=== PATIENT | male | born 1955 | race Caucasian/White ===

== ENCOUNTER 2016-09-15 09:33 | Inpatient (IN) | payer MEDICARE, OTHER ==
[2016-09-15] MEDS ORDERED: IOPAMIDOL 300 (61%) 100 ML VIAL IV ONE (09:34)
[2016-09-15 10:19] LABS: BASO # 0.1 K/mm3 (0.0-0.2); BASO % 1.1 % (0.2-1.0); EOS # 0.3 (0.0-0.5); EOS % 3.7 % (0.9-2.9); HEMATOCRIT 44.3 % (32.0-52.0); HEMOGLOBIN 14.4 gm/l (14.0-18.0); IMM NEUT% 0.3 % (0-1); LYMPH # 1.7 (1.0-4.8); LYMPH % 22.4 % (15-45); MEAN CELL VOLUME 87.4 fl (80.0-94.0); MEAN CORPUSCULAR HEMOGLOBIN 28.4 pg (27.0-31.0); MEAN CORPUSCULAR HGB CONC 32.5 g/dl (33.0-37.0); MEAN PLATELET VOLUME 11.6 fl (7.4-10.4); MONO # 0.5 (0.0-0.8); MONO % 6.5 % (4-12); PLATELET COUNT 227 K/mm3 (130-400)
[2016-09-15] MEDS ORDERED: ALBUTEROL/IPRATROPIUM 2.5/0.5 MG 3 ML/EACH DOSE ONE (10:26)
[2016-09-15 10:46] LABS: CALCIUM 8.6 mg/dL (8.6-10.3); MAGNESIUM 1.5 mg/dL (1.9-2.7)
[2016-09-15] MEDS ORDERED: LACTATED RINGERS 1,000 ML ONE (10:48)
[2016-09-15] MEDS ORDERED: DEXAMETHASONE SOD PHOS 10 MG/1 ML VIAL ONE (10:48)
[2016-09-15 11:15] LABS: PROTHROMBIN TIME 144.1 SECONDS (9.3-11.4)
[2016-09-15 11:16] LABS: INR > 10.00
[2016-09-15] MEDS ORDERED: PHYTONADIONE 10 MG/1 ML AMP ONE (11:34)
[2016-09-15] MEDS ORDERED: [UNRECOGNIZED DRUG - OTHER] IV ONE (12:55)
[2016-09-15] MEDS ORDERED: CEFTRIAXONE SODIUM 1 G VIAL ONE ×2 (12:55→13:01)
[2016-09-15] MEDS ORDERED: SODIUM CHLORIDE IV ONE (12:55)
[2016-09-15] MEDS ORDERED: SODIUM CHLORIDE 0.9% 100 ML IV ONE ×2 (13:02→13:37)
--- NOTE | 2016-09-15 13:08 | CT ---
CHEST W/ CON COMPARISON: Chest 2 views, 09/21/2014 HISTORY: 3 days of progressively worsening shortness of breath and patient started having hemoptysis today. Oxygen saturation initially hypoxic, saturation improved from 77% and 95%. Concern for pneumonia. Patient is on warfarin. Cigarette smoker. Normal white blood cell count. Technique: Intravenous injection 80 mL Isovue 300. Using a [employer] Complete Aquilion [address] scanner, images were obtained through the thorax. An automated dose reduction technique was used to minimize patient radiation dose. Dose information: CTDIvol (mGy): 29.00 DLP(mGycm): 1112.60 FINDINGS: Lungs: Severe emphysema. Consolidation in the right middle lobe with air bronchograms. In the posterior basal segment of the right lower lobe, 16 x 12 x 8 mm nodule, close to the diaphragm. Trachea and bronchi: Normal. Heart and vessels: Atherosclerosis of the coronary arteries. Mediastinum and charan: Normal. Esophagus: Normal. Pleura and pericardium: Normal. Chest wall and bones: Normal. Upper abdomen: Normal. IMPRESSION: 1. Consolidation in the right middle lobe and in the right lower lobe, 16 x 12 x 8 mm nodule, close to the diaphragm. Invasive adenocarcinoma (pneumonic form and nodular form), is suspected. Recommendation: CT guided fine-needle aspiration/core biopsy. The results were discussed with Edgard Bynum M.D. 09/15/2016 at 12:40
[2016-09-15] MEDS ORDERED: DOXYCYCLINE HYCLATE 100 MG IV VIAL ONE (13:36)
[2016-09-15 15:01] VITALS: BMI 42.7
[2016-09-15] MEDS ORDERED: ALBUTEROL NEB 2.5 MG/3 ML VIAL.NEB NEB PRN (17:16)
[2016-09-15] MEDS ORDERED: MENTHOL/CETYLPYRD 1 EACH LOZENGE PO PRN (17:26)
[2016-09-15] MEDS ORDERED: MAGNESIUM HYDROXIDE 30 ML UDCUP PO PRN (17:26)
[2016-09-15] MEDS ORDERED: BISACODYL 10 MG SUP PR PRN (17:26)
[2016-09-15] MEDS ORDERED: BLISTEX LIPSTICK 1 EACH TP PRN (17:26)
[2016-09-15] MEDS ORDERED: BISACODYL 5 MG TABLET.EC PO PRN (17:26)
[2016-09-15] MEDS ORDERED: NITROGLYCERIN 0.4 MG/TAB.SUBL BOT SL PRN (17:30)
[2016-09-15] MEDS: INSULIN ASPART (DOSE) 100 UNITS/1 ML SUB-Q PRN (17:51)
[2016-09-15] MEDS ORDERED: MAGNESIUM SULFATE 2 G/50 ML 2 G in Premix (Water) 50 ml 1 EACH IV ONE (19:00)
[2016-09-15] MEDS ORDERED: SODIUM CHLORIDE 0.9% IV ONE (19:15)
[2016-09-15] MEDS ORDERED: POTASSIUM CHLORIDE IV ONE (19:15)
[2016-09-15] MEDS ORDERED: PUMP TUBING ONE (20:23)
--- NOTE | 2016-09-15 20:28 | HP ---
BRAD AL [id number] : 1955 DATE OF ADMISSION: September 15, 2016 IDENTIFICATION: Mr. Al is a 61-year-old followed by Dr. Bryson. CHIEF COMPLAINT: Hemoptysis. HISTORY OF PRESENT ILLNESS: Mr. Al is a very complicated gentleman with multiple chronic medical problems. He reports that he has had a cough with thick sputum for a few days and that this morning he started coughing up blood. He always feels dyspneic and did not notice any change in his dyspnea although he has had some pain on his left side, left chest and left upper abdomen in the last few days. He was found to have a supratherapeutic INR greater than 10 in the emergency department. He was also found to have a right-sided infiltrate and new 16 mm nodule on chest CT scan. The emergency room physician apparently thought that the patient's hypoxemia was new. However, he tells me he is chronically on oxygen at home, 2 liters per minute while awake and up to 4 liters per minute while sleeping. He was treated with vitamin K, ceftriaxone and doxycycline in the emergency department and referred to the hospitalist service. REVIEW OF SYSTEMS: HEENT: Reports feeling faint and dizzy and having headache much of last week. Complains of left ear pain. No specific problems with eyes, nose or throat. RESPIRATORY: As per History of Present Illness. Chronic dyspnea and cough but the hemoptysis is new. CARDIAC: He did have an episode of chest pain about four days ago on the left side. It lasted for half an hour or so. It was relieved with nitroglycerin. He occasionally feels palpitations. GASTROINTESTINAL: He has nausea and reflux but no vomiting. He does have some left upper abdominal pain and reports both constipation and diarrhea and recent black stools. GENITOURINARY: He has frequency, no dysuria. MUSCULOSKELETAL: Chronic left arm weakness and chronic back pain. He also complains of cyanosis and sharp tingling in his feet. CONSTITUTIONAL: Reports feeling chilled all the time but no fevers noted. INTEGUMENT: He has had multiple skin lesions particularly in his axilla and has apparently been on an oral antibiotic recently for this, perhaps that is the cause of his elevated INR. PAST MEDICAL HISTORY: 1. Coronary artery disease. He has had a right coronary artery drug eluting stent placed April 14, [address] Shin. 2. Hyperlipidemia. 3. Morbid obesity with a body mass index nearly 43. 4. Diabetes mellitus type 2 with peripheral neuropathy. 5. Plantar fasciitis. 6. Chronic low back pain. 7. Gastroesophageal reflux disease. 8. Hypertension. 9. Chronic obstructive pulmonary disease with chronic respiratory failure on oxygen 24 hours a day. He is followed by Dr. Cota. 10. Chronic atrial fibrillation rate controlled and treated with warfarin. 11. Colonic polyposis. 12. Obstructive sleep apnea. He does use a CPAP at home. 13. Extensive history of nicotine dependence. States that he quit smoking three years ago after 50 years of smoking two to three packs per day. 14. Depression. PAST SURGICAL HISTORY: He denies having any surgery other than the cardiac stent. ALLERGIES: REPORTS AN INTOLERANCE TO METFORMIN. IT APPEARS FROM THE CLINIC NOTES THAT IT CAUSED DIARRHEA AND ABDOMINAL PAIN. MEDICATIONS: He is unsure of his medications, what he is taking and how often, but I reviewed previous list in [employer] as well as the list from his outpatient record and [employer] and the following is the best we could come up with: 1. Potassium chloride 10 mEq orally daily. 2. Albuterol metered dose inhaler two puffs as needed. 3. Prednisone 10 mg orally daily. 4. Digoxin 0.25 mg orally daily. 5. Citalopram 10 mg orally daily. 6. Atorvastatin 20 mg orally daily. 7. Atenolol 50 mg orally daily. 8. Glimepiride 4 mg orally daily. 9. Furosemide 20 mg 20 mg orally twice daily. 10. Advair 500/50 one inhalation twice daily. 11. Hydrocodone with acetaminophen 10/325 one tablet four times a day as needed. 12. Humulin 70/30 60 units subcutaneous twice daily. 13. Nitroglycerin 0.4 mg sublingual every five minutes as needed for chest pain. 14. Combivent Respimat one puff four times daily. 15. Pantoprazole 40 mg orally daily. 16. Olmesartan with hydrochlorothiazide 20/12.5 one daily. This was not on his clinic list, and I think he is probably not taking that. 17. Pioglitazone 45 mg orally daily. 18. Daliresp 500 mcg inhaled twice daily. 19. Lyrica 150 mg orally twice daily. 20. Warfarin 2.5 mg. He takes a varying number of pills on different days of the week and cannot tell me what his current regimen is. 21. Spiriva inhaler 18 mcg daily. HABITS: As above, he has a 100 to 150 pack-year smoking history but quit three years ago. Denies any significant alcohol or drug use. IMMUNIZATIONS: He is up to date on influenza, pneumonia vaccine and PCV13. SOCIAL HISTORY: He lives in [place] with his who is severely disabled with chronic kidney failure on hemodialysis. Hospital social work made arrangements for his to have additional care while he is hospitalized. FAMILY HISTORY: Strongly positive for diabetes and coronary artery disease from which both of his brothers . PHYSICAL EXAMINATION: GENERAL: This is a morbidly obese, very talkative gentleman. Appears older than 61 years. VITAL SIGNS: Temperature 97.9 degrees Fahrenheit, pulse 90, blood pressure 144/68, respiratory rate 20, oxygen saturation 96% on three liters of oxygen by nasal cannula. HEENT: Pupils are equal, round and reactive. Extraocular muscles are intact. Oropharynx is edentulous. NECK: No adenopathy. CHEST: Poor air movement with expiratory wheezes throughout. HEART: Is distant, no murmur appreciated. ABDOMEN: Massively obese, soft with moderate left upper quadrant tenderness. No guarding or rebound. Normal bowel tones. No palpable masses. EXTREMITIES: He has good dorsalis pedis pulses without edema. There is clubbing of the nails. INTEGUMENT: Multiple excoriated lesions on the arms and striae on the upper arms and around the axilla. He does have bandages in his axillae which were not removed. Lower extremities show venous stasis dermatitis, dusky dry skin and thickened calluses on the feet. LABORATORY DATA: White blood cell count is 7.6, hemoglobin and hematocrit 14.4 and 44.3, platelets 227. PT is 144, INR greater than 10. Venous blood gas lactate 1.7. Sodium 138, potassium low at 3.2, chloride 98, CO2 30, BUN 11, creatinine 0.9, glucose 259. Magnesium low at 1.5, troponin I less than 0.01, digoxin 0.6. Influenza A and B are negative. RADIOLOGY: Chest CT scan, consolidation in the right middle lobe and a 16 x 12 x 8 nodule close to the diaphragm on the right suspicious for invasive adenocarcinoma. ELECTROCARDIOGRAM: Atrial fibrillation with controlled rate at 76 beats per minute. ASSESSMENT: Mr. Al is a complicated 61-year-old who presents with hemoptysis secondary to supratherapeutic INR. He has chronic hypoxemia but has findings on chest x-ray which may represent community acquired pneumonia and/or lung cancer. He has underlying morbid obesity, diabetes type 2, hypertension, dyslipidemia, coronary artery disease, gastroesophageal reflux disease, obstructive sleep apnea, and chronic atrial fibrillation. He also has acute hypokalemia and hypomagnesemia. PLAN: 1. Admit to medical/surgical floor. 2. Continue treatment with ceftriaxone and doxycyline for potential community acquired pneumonia. 3. He was given a dose of intravenous dexamethasone in the emergency department. We will continue with daily prednisone at 60 mg a day and increase nebulizer treatment for potential chronic obstructive pulmonary disease exacerbation. 4. He was given vitamin K in the emergency room. We will follow his prothrombin time and continue to treat as necessary to bring that down so that he can have a pulmonary biopsy done. 5. Potassium and magnesium replacement. 6. Code status was discussed with the patient. He says he wants to be left alone and believes he has signed a paper to that effect. Therefore he will be DO NOT RESUSCITATE. 7. He has multiple risk factors for venous thrombosis, however, he is excessively anticoagulated on warfarin and does not require any additional prophylaxis. 8. Treat blood sugars as needed with insulin. 9. Further care as indicated by clinical course.
[2016-09-15] MEDS: SODIUM CHLORIDE 0.9% 100 ML IV PRN (20:33)
[2016-09-15] MEDS: FLUTICASONE/SALMETEROL 500/50 14 PUFFS/DISK IH SCH (20:35)
[2016-09-15] MEDS: INSULIN HUMAN NPH 70/REG 30 100 UNITS/1 ML UNIT (D0SE) SUB-Q SCH (22:29)
[2016-09-15] MEDS: FUROSEMIDE 20 MG TABLET PO SCH (22:34)
[2016-09-15] MEDS: DOCUSATE SODIUM 100 MG CAPSULE PO SCH (22:34)
[2016-09-15] MEDS: PREGABALIN 50 MG CAP PO SCH (22:35)
[2016-09-15] MEDS: ALBUTEROL/IPRATROPIUM 2.5/0.5 MG 3 ML/EACH DOSE NEB SCH (22:42)
[2016-09-15] MEDS ORDERED: INSULIN ASPART (DOSE) 100 UNITS/1 ML SUB-Q ONE (22:48)
[2016-09-16] MEDS: DOXYCYCLINE HYCLATE 100 MG in SODIUM CHLORIDE 0.9% 100 ML IV SCH ×2 (01:09→13:02)
[2016-09-16] MEDS: HYDROCODONE BIT/ACETAMINOPHEN 10 MG/325 MG TAB PO PRN (01:34)
[2016-09-16 06:26] LABS: ABSOLUTE NEUTROPHIL COUNT 8.4 K/mm3 (1.8-7.7); BASO % 0.2 % (0.2-1.0); HEMATOCRIT 40.4 % (32.0-52.0); HEMOGLOBIN 13.3 gm/l (14.0-18.0); IMM NEUT # 0.1 K/mm3 (0-0.2); IMM NEUT% 0.5 % (0-1); LYMPH # 0.8 (1.0-4.8); LYMPH % 8.3 % (15-45); MEAN CELL VOLUME 86.7 fl (80.0-94.0); MEAN CORPUSCULAR HEMOGLOBIN 28.5 pg (27.0-31.0); MEAN CORPUSCULAR HGB CONC 32.9 g/dl (33.0-37.0); MEAN PLATELET VOLUME 11.9 fl (7.4-10.4); MONO # 0.3 (0.0-0.8); MONO % 3.3 % (4-12); NEUT % 87.7 % (43-75); PLATELET COUNT 195 K/mm3 (130-400); RED CELL DISTRIBUTION WIDTH 13.9 % (11.5-14.5)
[2016-09-16 06:40] LABS: INR 1.17; PROTHROMBIN TIME 12.3 SECONDS (9.3-11.4)
[2016-09-16 06:56] LABS: ALB/GLOB RATIO 1.6 (>1.0); ALBUMIN 3.6 gm/dL (3.5-5.7); CALCIUM 9.8 mg/dL (8.6-10.3)
[2016-09-16] MEDS: INSULIN ASPART (DOSE) 100 UNITS/1 ML SUB-Q PRN ×4 (08:21→21:31)
[2016-09-16] MEDS: INSULIN HUMAN NPH 70/REG 30 100 UNITS/1 ML UNIT (D0SE) SUB-Q SCH ×2 (08:23→21:31)
[2016-09-16] MEDS: ALBUTEROL/IPRATROPIUM 2.5/0.5 MG 3 ML/EACH DOSE NEB SCH ×4 (08:50→20:19)
[2016-09-16] MEDS ORDERED: PNEUMOCOCCAL 23-VAL P-SAC VAC 0.5 ML VIAL IM V ONE (09:00)
[2016-09-16] MEDS: PREGABALIN 50 MG CAP PO SCH ×2 (09:19→21:30)
[2016-09-16] MEDS: PREDNISONE 20 MG TABLET PO SCH (09:20)
[2016-09-16] MEDS: DOCUSATE SODIUM 100 MG CAPSULE PO SCH ×2 (09:21→21:29)
[2016-09-16] MEDS: Magnesium Oxide 400 MG TABLET PO SCH ×2 (09:21→21:30)
[2016-09-16] MEDS: FUROSEMIDE 20 MG TABLET PO SCH ×2 (09:21→21:29)
[2016-09-16] MEDS: POTASSIUM CHLORIDE 20 MEQ TAB.PRT.SR PO SCH ×2 (09:22→21:29)
[2016-09-16] MEDS: PANTOPRAZOLE 40 MG TABLET DR PO SCH (09:22)
[2016-09-16] MEDS: GLIMEPIRIDE 4 MG TABLET PO SCH (09:23)
[2016-09-16] MEDS: ATENOLOL 25 MG TABLET PO SCH (09:23)
[2016-09-16] MEDS: TIOTROPIUM BROMIDE 18 MCG 5 CAP/INHALER IH SCH (09:25)
[2016-09-16] MEDS: FLUTICASONE/SALMETEROL 500/50 14 PUFFS/DISK IH SCH ×2 (09:26→21:28)
[2016-09-16] MEDS ORDERED: PUMP TUBING ONE (12:06)
[2016-09-16] MEDS: CEFTRIAXONE 1 GRAM DUPLEX 1 G in Premix (D5W) 50 ml 1 EACH IV SCH (12:11)
[2016-09-16] MEDS: SODIUM CHLORIDE 0.9% 100 ML IV PRN (12:13)
[2016-09-16] MEDS: DIGOXIN 0.125 MG TABLET PO SCH (12:16)
[2016-09-16] MEDS: ROFLUMILAST 500 MCG PO SCH (13:08)
--- NOTE | 2016-09-16 14:14 | PDOC43 ---
- Subjective Chief Complaint: Hemoptysis Patient reports doing better, only coughed blood three times today. Eager to go home, concerned about his diabetic with falls. SW consulted. - Objective Vital Signs Temperature 97.5 F 09/16/16 07:16 Pulse Rate 81 09/16/16 12:20 Respiratory Rate 20 09/16/16 12:20 Blood Pressure 104/59 09/16/16 07:16 O2 Saturation by Pulse Oximetry 91 09/16/16 12:20 Oxygen Delivery Method Room Air Oxygen Flow Rate 0 Vital Signs Last 12 Hours Temp Pulse Resp BP Pulse Ox 09/16/16 12:20 81 20 91 09/16/16 08:50 88 18 94 09/16/16 08:00 24 09/16/16 07:16 97.5 F 89 22 104/59 95 09/16/16 02:00 97.9 F 101 16 113/69 95 Intake and Output 09/14/16 09/15/16 09/16/16 23:59 23:59 23:59 Intake Total 240 2580 Output Total 2155 Balance 240 425 General: Alert, Other (fair to poor historian.) Lungs: Other (diminished air movement bilat. No crackles, wheezes noted. Large habitus) Cardiovascular: Regular Rate and Rhythm (distant) Abdomen: Soft, Normal Bowel Sounds, Other (large pannus.) Extremities: Other (abrasion/dermatitis on shins), No Edema Skin: Other (?Hidradenitis under axilla bilat. Stretch desir (purple) suggested bilat at axillae.) Neurological: Normal Speech, Other (Memory fair? but answers questions reasonably well.) Psych/Mental Status: Anxious (about returning home, concerned about , hoping to go home shortly.) Laboratory 09/16/16 06:00 09/16/16 06:00 09/16/16 09/16/16 09/16/16 11:24 10:41 08:20 RBC MCHC PT POC Capillary Glucose 380 H 373 H 367 H Total Protein Globulin 09/16/16 09/16/16 09/15/16 08:04 06:00 22:29 RBC 4.66 L MCHC 32.9 L PT 12.3 H POC Capillary Glucose 429 H 474 H Total Protein 5.8 L Globulin 2.2 L 09/15/16 17:13 RBC MCHC PT POC Capillary Glucose 309 H Total Protein Globulin Laboratory Tests 09/15/16 09/16/16 10:11 06:00 INR > 10.00 H* 1.17 Current Medications: Current meds reviewed in EMR. Active Medications Acetaminophen/Hydrocodone Bitart ([place] 10/325) 1 tab PO QID PRN PRN Reason: Pain Last Admin: 09/16/16 01:34 Dose: 1 tab Albuterol Sulfate (Ventolin Inhalation Solution (Dose)) 2.5 mg NEB Q2H PRN PRN Reason: Wheezing Albuterol/Ipratropium (Duoneb) 3 ml NEB 08,12,16,20 [facility] Last Admin: 09/16/16 12:20 Dose: 3 ml Atenolol (Tenormin) 50 mg PO DAILY [facility] Last Admin: 09/16/16 09:23 Dose: 50 mg Benzocaine/Menthol (Cepacol) 1 each PO PRN PRN PRN Reason: Sore Throat Bisacodyl (Dulcolax) 10 mg [place] DAILY PRN PRN Reason: Constipation Bisacodyl (Dulcolax) 5 mg PO DAILY PRN PRN Reason: Constipation Digoxin (Lanoxin) 0.125 mg PO DAILY@1200 [facility] Last Admin: 09/16/16 12:16 Dose: 0.125 mg Docusate Sodium (Colace) 100 mg PO BID [facility] Last Admin: 09/16/16 09:21 Dose: 100 mg Furosemide (Lasix) 20 mg PO BID [facility] Last Admin: 09/16/16 09:21 Dose: 20 mg Glimepiride (Amaryl) 4 mg PO DAILY [facility] Last Admin: 09/16/16 09:23 Dose: 4 mg Ceftriaxone Sodium/Dextrose 1 (g/ Premix (D5W) 50 ml) 50 mls @ 100 mls/hr IV Q24H [facility] Last Admin: 09/16/16 12:11 Dose: 100 mls/hr Doxycycline Hyclate 100 mg/ (Sodium Chloride) 100 mls @ 100 mls/hr IV Q12H [facility] Last Admin: 09/16/16 13:02 Dose: 100 mls/hr Sodium Chloride (Sodium Chloride 0.9%) 100 mls @ 25 mls/hr IV PRN PRN PRN Reason: Flush Last Admin: 09/16/16 12:13 Dose: 25 mls/hr Insulin Aspart (Novolog (Dose)) 0 units SUB-Q WM/BEDTIME PRN; Protocol PRN Reason: Blood Sugar > Last Admin: 09/16/16 12:14 Dose: 20 units Insulin Human Isoph/Insulin Regular (Novolin/Humulin 70/30 Dose) 60 units SUB- Q BID [facility] Last Admin: 09/16/16 08:23 Dose: 60 units Magnesium Hydroxide (Milk Of Magnesia) 30 ml PO DAILY PRN PRN Reason: Constipation Last Admin: 09/16/16 01:34 Dose: 30 ml Magnesium Oxide (Magnesium Oxide) 400 mg PO BID [facility] Last Admin: 09/16/16 09:21 Dose: 400 mg Miscellaneous (Roflumilast [Daliresp 500 Mcg Tablet]) 500 mcg PO DAILY [facility] Last Admin: 09/16/16 13:08 Dose: 500 mcg Nitroglycerin (Nitrostat) 0.4 mg SL Q5M X 3 DOSES PRN Pantoprazole Sodium (Protonix) 40 mg PO DAILY [facility] Last Admin: 09/16/16 09:22 Dose: 40 mg Petrolatum/Paraffin/Mineral Oil (Blistex) 1 each TP PRN PRN PRN Reason: Dry and/or chapped lips Potassium Chloride (K-Dur) 20 meq PO BID [facility] Last Admin: 09/16/16 09:22 Dose: 20 meq Prednisone (Prednisone) 60 mg PO QAM [facility] Last Admin: 09/16/16 09:20 Dose: 60 mg Pregabalin (Lyrica) 150 mg PO BID [facility] Last Admin: 09/16/16 09:19 Dose: 150 mg Fluticasone/Salmeterol (Advair 500/50 Diskus) 1 puff IH BID [facility] Last Admin: 09/16/16 09:26 Dose: 1 puff Sodium Chloride (Normal Saline 10ml Flush) 10 ml IV Q8HR [facility] Last Admin: 09/16/16 09:18 Dose: 10 ml Sodium Chloride (Normal Saline 10ml Flush) 10 - 50 ml IV PRN PRN Last Admin: 09/15/16 20:33 Dose: 20 ml Tiotropium [place] (Spiriva Handihaler) 1 cap IH DAILY [facility] Last Admin: 09/16/16 09:25 Dose: 1 inh - Problems: Assessment/Plan (1) Hemoptysis Status: Acute Assessment/Plan: Pneumonia vs neoplasm with hyperanticoagulated. INR now corrected, will be discussing with radiologist about whether bx can be done here. (2) Pulmonary mass Status: Acute Assessment/Plan: Consider for bx - CT guided vs other. Discussion with radiologist pending about suitability for bx, vs referral/transfer. reports [place] be more convenient for them. (3) Supratherapeutic INR Status: Resolved Assessment/Plan: Appears corrected with 10 mg Vit K. Now <1.5 (4) Atrial fibrillation Qualifiers: Atrial fibrillation type: chronic Qualifier Code: (I48.2) Chronic atrial fibrillation Status: Chronic Assessment/Plan: Has been on anticoagulation. On atenolol, Rate controlled. Ongoing - AFib on admit EKG. (5) COPD (chronic obstructive pulmonary disease) Qualifiers: COPD type: emphysema Emphysema type: unspecified Qualifier Code: ( J43.9) Emphysema, unspecified Status: Chronic Assessment/Plan: Noted on CT. (6) Diabetes type 2, controlled Qualifiers: Diabetes mellitus complication status: with unspecified complications Diabetes mellitus jail insulin use: with termite exterminator helper use Qualifier Code: (E11.8) Type 2 diabetes mellitus with unspecified complications Status: Chronic Assessment/Plan: Not controlled currently, likely worsened considerably with steroids. BG in 300-400 range. Consider further revision. VTE Prophylaxis: Holding for now, anticipated procedure Disposition: Anticipate return to home after biopsy, but may require transfer if not candidate for needle CT guided bx.
[2016-09-16] MEDS ORDERED: INSULIN ASPART (DOSE) 100 UNITS/1 ML SUB-Q ONE (14:15)
[2016-09-17] MEDS ORDERED: DOXYCYCLINE HYCLATE 100 MG in NS 0.9% (MINI-BAG PLUS) 100 ML IV SCH (01:00)
[2016-09-17] MEDS: DOXYCYCLINE HYCLATE 100 MG in SODIUM CHLORIDE 0.9% 100 ML IV SCH (01:10)
[2016-09-17 05:56] LABS: ABSOLUTE NEUTROPHIL COUNT 8.7 K/mm3 (1.8-7.7); BASO % 0.2 % (0.2-1.0); HEMATOCRIT 40.2 % (32.0-52.0); HEMOGLOBIN 13.2 gm/l (14.0-18.0); IMM NEUT # 0.1 K/mm3 (0-0.2); IMM NEUT% 0.8 % (0-1); LYMPH # 1.2 (1.0-4.8); LYMPH % 11.3 % (15-45); MEAN CORPUSCULAR HEMOGLOBIN 28.9 pg (27.0-31.0); MEAN CORPUSCULAR HGB CONC 32.8 g/dl (33.0-37.0); MEAN PLATELET VOLUME 12.3 fl (7.4-10.4); MONO # 0.7 (0.0-0.8); MONO % 6.7 % (4-12); PLATELET COUNT 206 K/mm3 (130-400); RED CELL DISTRIBUTION WIDTH 14.3 % (11.5-14.5)
[2016-09-17 06:19] LABS: ALB/GLOB RATIO 1.7 (>1.0); ALBUMIN 3.5 gm/dL (3.5-5.7); CALCIUM 8.9 mg/dL (8.6-10.3); INR 1.08; PROTHROMBIN TIME 11.3 SECONDS (9.3-11.4)
[2016-09-17] MEDS ORDERED: D5 1/2NS with 20 mEq KCL 1,000 ML IV SCH (07:00)
[2016-09-17] MEDS: ALBUTEROL/IPRATROPIUM 2.5/0.5 MG 3 ML/EACH DOSE NEB SCH ×4 (07:39→20:46)
--- NOTE | 2016-09-17 08:31 | PDOC43 ---
- Subjective Chief Complaint: Hemoptysis Patient reports some hemoptysis - about 5 ml today. Breathing with wheezing, but at baseline for him. He has O2 at home to use prn. Pt eager for DC. No new c /o. - Objective Vital Signs Temperature 97.7 F 09/17/16 06:57 Pulse Rate 89 09/17/16 06:57 Respiratory Rate 24 09/17/16 07:26 Blood Pressure 152/81 09/17/16 06:57 O2 Saturation by Pulse Oximetry 95 09/17/16 06:57 Oxygen Delivery Method Nasal Cannula Oxygen Flow Rate 0.5 Vital Signs Last 12 Hours Temp Pulse Resp BP Pulse Ox 09/17/16 07:26 24 09/17/16 06:57 97.7 F 89 24 152/81 95 09/17/16 02:00 18 09/17/16 01:57 98.2 F 103 18 132/73 95 09/16/16 20:00 92 24 09/16/16 19:55 97.8 F 94 16 137/76 93 Intake and Output 09/15/16 09/16/16 09/17/16 23:59 23:59 23:59 Intake Total 240 3613 540 Output Total 2385 825 Balance 240 1228 -285 General: Alert, Other (memory/history fair), No Acute Distress Lungs: Other (bilat wheezing, cough. Fair air movement. Some darker red sputum noted in emesis bag.) Cardiovascular: Regular Rate and Rhythm (atrial fib, rate controlled.) Abdomen: Soft, Normal Bowel Sounds, Non-Distended, No Tenderness Extremities: Edema (trace edema bilat. Venous stasis changes bilat LE.) Neurological: Normal Speech Psych/Mental Status: Normal Affect, Other (fair historian.) Laboratory 09/17/16 05:30 09/17/16 05:30 09/17/16 09/17/16 09/16/16 06:59 05:30 21:10 RBC 4.57 L MCHC 32.8 L POC Capillary Glucose 236 H 331 H Total Protein 5.6 L Globulin 2.1 L 09/16/16 09/16/16 09/16/16 16:28 14:38 11:24 RBC MCHC POC Capillary Glucose 309 H 344 H 380 H Total Protein Globulin 09/16/16 09/16/16 09/16/16 10:41 08:20 08:04 RBC MCHC POC Capillary Glucose 373 H 367 H 429 H Total Protein Globulin Laboratory Tests 09/17/16 05:30 INR 1.08 Current Medications: Current meds reviewed in EMR. Active Medications Acetaminophen/Hydrocodone Bitart ([place] 10/325) 1 tab PO QID PRN PRN Reason: Pain Last Admin: 09/16/16 01:34 Dose: 1 tab Albuterol Sulfate (Ventolin Inhalation Solution (Dose)) 2.5 mg NEB Q2H PRN PRN Reason: Wheezing Albuterol/Ipratropium (Duoneb) 3 ml NEB 08,12,16,20 [facility] Last Admin: 09/17/16 07:39 Dose: 3 ml Atenolol (Tenormin) 50 mg PO DAILY [facility] Last Admin: 09/16/16 09:23 Dose: 50 mg Benzocaine/Menthol (Cepacol) 1 each PO PRN PRN PRN Reason: Sore Throat Bisacodyl (Dulcolax) 10 mg [place] DAILY PRN PRN Reason: Constipation Bisacodyl (Dulcolax) 5 mg PO DAILY PRN PRN Reason: Constipation Digoxin (Lanoxin) 0.125 mg PO DAILY@1200 [facility] Last Admin: 09/16/16 12:16 Dose: 0.125 mg Docusate Sodium (Colace) 100 mg PO BID [facility] Last Admin: 09/16/16 21:29 Dose: 100 mg Furosemide (Lasix) 20 mg PO BID [facility] Last Admin: 09/16/16 21:29 Dose: 20 mg Glimepiride (Amaryl) 4 mg PO DAILY [facility] Last Admin: 09/16/16 09:23 Dose: 4 mg Ceftriaxone Sodium/Dextrose 1 (g/ Premix (D5W) 50 ml) 50 mls @ 100 mls/hr IV Q24H [facility] Last Admin: 09/16/16 12:11 Dose: 100 mls/hr Doxycycline Hyclate 100 mg/ (Sodium Chloride) 100 mls @ 100 mls/hr IV Q12H [facility] Last Admin: 09/17/16 01:10 Dose: 100 mls/hr Sodium Chloride (Sodium Chloride 0.9%) 100 mls @ 25 mls/hr IV PRN PRN PRN Reason: Flush Last Admin: 09/16/16 12:13 Dose: 25 mls/hr Potassium Chloride/Dextrose/Sod Cl (D51/2ns With 20 Meq Kcl) 1,000 mls @ 75 mls /hr IV .[id number] [facility] Last Admin: 09/17/16 07:19 Dose: 75 mls/hr Insulin Aspart (Novolog (Dose)) 0 units SUB-Q WM/BEDTIME PRN; Protocol PRN Reason: Blood Sugar > Last Admin: 09/16/16 21:31 Dose: 5 units Insulin Human Isoph/Insulin Regular (Novolin/Humulin 70/30 Dose) 80 units SUB- Q BID [facility] Last Admin: 09/16/16 21:31 Dose: 80 units Magnesium Hydroxide (Milk Of Magnesia) 30 ml PO DAILY PRN PRN Reason: Constipation Last Admin: 09/16/16 01:34 Dose: 30 ml Magnesium Oxide (Magnesium Oxide) 400 mg PO BID [facility] Last Admin: 09/16/16 21:30 Dose: 400 mg Miscellaneous (Roflumilast [Daliresp 500 Mcg Tablet]) 500 mcg PO DAILY [facility] Last Admin: 09/16/16 13:08 Dose: 500 mcg Nitroglycerin (Nitrostat) 0.4 mg SL Q5M X 3 DOSES PRN Pantoprazole Sodium (Protonix) 40 mg PO DAILY [facility] Last Admin: 09/16/16 09:22 Dose: 40 mg Petrolatum/Paraffin/Mineral Oil (Blistex) 1 each TP PRN PRN PRN Reason: Dry and/or chapped lips Potassium Chloride (K-Dur) 20 meq PO BID [facility] Last Admin: 09/16/16 21:29 Dose: 20 meq Prednisone (Prednisone) 60 mg PO QAM [facility] Last Admin: 09/16/16 09:20 Dose: 60 mg Pregabalin (Lyrica) 150 mg PO BID [facility] Last Admin: 09/16/16 21:30 Dose: 150 mg Fluticasone/Salmeterol (Advair 500/50 Diskus) 1 puff IH BID [facility] Last Admin: 09/16/16 21:28 Dose: 1 puff Sodium Chloride (Normal Saline 10ml Flush) 10 ml IV Q8HR [facility] Last Admin: 09/17/16 01:08 Dose: 10 ml Sodium Chloride (Normal Saline 10ml Flush) 10 - 50 ml IV PRN PRN Last Admin: 12/28/16 14:38 Dose: 10 ml Tiotropium [place] (Spiriva Handihaler) 1 cap IH DAILY [facility] Last Admin: 09/16/16 09:25 Dose: 1 inh - Problems: Assessment/Plan (1) Hemoptysis Status: Acute Assessment/Plan: Pneumonia vs neoplasm with over-anticoagulation. INR now corrected, but on discussion with radiologist, they would hesitate to do biopsy at this time. (2) Pulmonary mass Status: Acute Assessment/Plan: Appreciate radiologist care, but will probably not be able to do procedure here. Will review with pulmonary in [place] (pt sees Dr Cota), if they would be able to address this for him. (3) Supratherapeutic INR Status: Resolved Assessment/Plan: Corrected with 10 mg Vit K. Remains <1.5. Pt expresses interest in other anticoagulants (non-warfarin), but with hemoptysis, would not start at this time. (4) Atrial fibrillation Qualifiers: Atrial fibrillation type: chronic Qualifier Code: (I48.2) Chronic atrial fibrillation Status: Chronic Assessment/Plan: Has been on anticoagulation, now reversed on Vit K. On atenolol, Rate controlled., 84-103 Ongoing - AFib on admit EKG. (5) COPD (chronic obstructive pulmonary disease) Qualifiers: COPD type: emphysema Emphysema type: unspecified Qualifier Code: ( J43.9) Emphysema, unspecified Status: Chronic Assessment/Plan: Noted on CT. Appreciate pulmonary input - call in to Dr Baker (6) Diabetes type 2, controlled Qualifiers: Diabetes mellitus complication status: with unspecified complications Diabetes mellitus prison insulin use: with termite exterminator use Qualifier Code: (E11.8) Type 2 diabetes mellitus with unspecified complications Status: Chronic Assessment/Plan: Not controlled currently, likely worsened considerably with steroids. BG down to 200s, improved, but still above goal. Currently NPO for poss procedure, but waiting to hear from [facility] as to if they could accept. VTE Prophylaxis: Holding for now, anticipated procedure Disposition: Awaiting discussion from [facility] about what could be done to facilitate biopsy/ eval.
[2016-09-17] MEDS ORDERED: VANCOMYCIN HCL 0 G in SODIUM CHLORIDE 0.9% 250 ML IV SCH (09:45)
[2016-09-17] MEDS: FLUTICASONE/SALMETEROL 500/50 14 PUFFS/DISK IH SCH ×2 (09:48→21:03)
[2016-09-17] MEDS: GLIMEPIRIDE 4 MG TABLET PO SCH (09:49)
[2016-09-17] MEDS: PREGABALIN 50 MG CAP PO SCH ×2 (09:50→21:07)
[2016-09-17] MEDS: FUROSEMIDE 20 MG TABLET PO SCH ×2 (09:50→21:04)
[2016-09-17] MEDS: Magnesium Oxide 400 MG TABLET PO SCH ×2 (09:50→21:04)
[2016-09-17] MEDS: DOCUSATE SODIUM 100 MG CAPSULE PO SCH ×2 (09:50→21:05)
[2016-09-17] MEDS: POTASSIUM CHLORIDE 20 MEQ TAB.PRT.SR PO SCH ×2 (09:50→21:04)
[2016-09-17] MEDS: ATENOLOL 25 MG TABLET PO SCH (09:51)
[2016-09-17] MEDS: PANTOPRAZOLE 40 MG TABLET DR PO SCH (09:51)
[2016-09-17] MEDS: PREDNISONE 20 MG TABLET PO SCH (09:51)
[2016-09-17] MEDS: TIOTROPIUM BROMIDE 18 MCG 5 CAP/INHALER IH SCH (09:52)
[2016-09-17] MEDS: ROFLUMILAST 500 MCG PO SCH (09:54)
[2016-09-17] MEDS: INSULIN HUMAN NPH 70/REG 30 100 UNITS/1 ML UNIT (D0SE) SUB-Q SCH ×2 (10:57→21:08)
[2016-09-17] MEDS: LEVOFLOXACIN 750 MG/D5W 150 ML 750 MG in Premix (D5W) 150 ml Bag 1 EACH IV SCH (10:59)
[2016-09-17] MEDS: INSULIN ASPART (DOSE) 100 UNITS/1 ML SUB-Q PRN ×4 (11:28→23:15)
[2016-09-17] MEDS: DIGOXIN 0.125 MG TABLET PO SCH (12:04)
[2016-09-17] MEDS ORDERED: VANCOMYCIN HCL 2.25 G in SODIUM CHLORIDE 0.9% 500 ML IV ONE (12:30)
[2016-09-17] MEDS: CEFTRIAXONE 1 GRAM DUPLEX 1 G in Premix (D5W) 50 ml 1 EACH IV SCH (12:41)
[2016-09-17] MEDS: HYDROCODONE BIT/ACETAMINOPHEN 10 MG/325 MG TAB PO PRN (17:14)
[2016-09-18] MEDS: VANCOMYCIN HCL 2 G in SODIUM CHLORIDE 0.9% 500 ML IV SCH ×3 (00:04→22:03)
[2016-09-18] MEDS: SODIUM CHLORIDE 0.9% 100 ML IV PRN ×2 (00:04→22:03)
[2016-09-18] MEDS: HYDROCODONE BIT/ACETAMINOPHEN 10 MG/325 MG TAB PO PRN (06:15)
[2016-09-18 06:26] LABS: ABSOLUTE NEUTROPHIL COUNT 8.1 K/mm3 (1.8-7.7); BASO % 0.2 % (0.2-1.0); EOS % 0.1 % (0.9-2.9); HEMATOCRIT 39.7 % (32.0-52.0); HEMOGLOBIN 12.7 gm/l (14.0-18.0); IMM NEUT # 0.1 K/mm3 (0-0.2); LYMPH # 1.5 (1.0-4.8); LYMPH % 14.3 % (15-45); MEAN CELL VOLUME 89.6 fl (80.0-94.0); MEAN CORPUSCULAR HEMOGLOBIN 28.7 pg (27.0-31.0); MONO # 0.8 (0.0-0.8); MONO % 7.5 % (4-12); NEUT % 76.9 % (43-75); PLATELET COUNT 193 K/mm3 (130-400); RED CELL DISTRIBUTION WIDTH 14.5 % (11.5-14.5)
[2016-09-18 06:48] LABS: ALB/GLOB RATIO 1.4 (>1.0); ALBUMIN 3.3 gm/dL (3.5-5.7); CALCIUM 8.6 mg/dL (8.6-10.3)
[2016-09-18] MEDS: ALBUTEROL/IPRATROPIUM 2.5/0.5 MG 3 ML/EACH DOSE NEB SCH ×4 (07:34→22:15)
[2016-09-18] MEDS: PREGABALIN 50 MG CAP PO SCH ×2 (09:12→22:02)
[2016-09-18] MEDS: POTASSIUM CHLORIDE 20 MEQ TAB.PRT.SR PO SCH ×2 (09:13→22:01)
[2016-09-18] MEDS: ATENOLOL 25 MG TABLET PO SCH (09:13)
[2016-09-18] MEDS: PREDNISONE 20 MG TABLET PO SCH (09:13)
[2016-09-18] MEDS: FLUTICASONE/SALMETEROL 500/50 14 PUFFS/DISK IH SCH ×2 (09:13→22:02)
[2016-09-18] MEDS: Magnesium Oxide 400 MG TABLET PO SCH ×2 (09:13→22:01)
[2016-09-18] MEDS: GLIMEPIRIDE 4 MG TABLET PO SCH (09:13)
[2016-09-18] MEDS: DOCUSATE SODIUM 100 MG CAPSULE PO SCH ×2 (09:13→22:02)
[2016-09-18] MEDS: TIOTROPIUM BROMIDE 18 MCG 5 CAP/INHALER IH SCH (09:13)
[2016-09-18] MEDS: FUROSEMIDE 20 MG TABLET PO SCH ×2 (09:13→22:01)
[2016-09-18] MEDS: PANTOPRAZOLE 40 MG TABLET DR PO SCH (09:13)
[2016-09-18] MEDS: INSULIN HUMAN NPH 70/REG 30 100 UNITS/1 ML UNIT (D0SE) SUB-Q SCH ×2 (09:14→22:01)
[2016-09-18] MEDS: ROFLUMILAST 500 MCG PO SCH (09:15)
[2016-09-18] MEDS: LEVOFLOXACIN 750 MG/D5W 150 ML 750 MG in Premix (D5W) 150 ml Bag 1 EACH IV SCH (10:31)
[2016-09-18] MEDS: DIGOXIN 0.125 MG TABLET PO SCH (11:36)
[2016-09-18] MEDS: INSULIN ASPART (DOSE) 100 UNITS/1 ML SUB-Q PRN ×3 (11:41→22:00)
[2016-09-18] MEDS ORDERED: LORAZEPAM 2 MG/ML 1ML SDV IV PRN (11:49)
[2016-09-18] MEDS ORDERED: LIDOCAINE 1% (PRES FREE) 5 ML VIAL PF PRN (11:49)
[2016-09-18] MEDS: CEFTRIAXONE 1 GRAM DUPLEX 1 G in Premix (D5W) 50 ml 1 EACH IV SCH (12:06)
[2016-09-18] MEDS ORDERED: SODIUM CHLORIDE 0.9% 50 ML IV ONE (13:07)
[2016-09-18] MEDS ORDERED: Sodium Chloride 0.9% 60 ML ONE (14:41)
--- NOTE | 2016-09-18 21:24 | RAD ---
CXR FOR PLACEMENT/LINE or TUBE HISTORY: PICC line placement. COMPARISONS: None. FINDINGS: A single view of the chest was performed demonstrating a right-sided PICC catheter with its tip projecting at the expected location of the retrocaval junction. No pneumothorax is seen. Patchy airspace consolidation is identified within the right perihilar region. IMPRESSION: 1. A right-sided PICC catheter with its tip projecting at the expected location of the tracheal junction. No pneumothorax is visualized. 2. Patchy airspace consolidation within the right perihilar region. The findings were called to [facility] at 2121 hours.
[2016-09-18] MEDS ORDERED: PUMP TUBING ONE (21:44)
[2016-09-19] MEDS: HYDROCODONE BIT/ACETAMINOPHEN 10 MG/325 MG TAB PO PRN ×4 (00:18→21:57)
[2016-09-19] MEDS: DOCUSATE SODIUM 100 MG CAPSULE PO SCH ×3 (07:04→21:38)
[2016-09-19] MEDS: ALBUTEROL/IPRATROPIUM 2.5/0.5 MG 3 ML/EACH DOSE NEB SCH ×4 (08:45→20:00)
--- NOTE | 2016-09-19 10:08 | PDOC43 ---
- Subjective Chief Complaint: Hemoptysis, poss lung mass vs pneumonia Patient reports still having some bloody sputum - shows a nickel sized spot in emesis bag. Notes ongoing cough. Can get short of breath with activity. Breathing still difficult. Chest can be sore with coughing. Notes his legs were hurting yesterday. Also would like to get Xray of L elbow, notes he's had pains suggestive of lateral epicondylitis for some time now. Hurts to lift coffee cup. - Objective Vital Signs Temperature 97.9 F 09/19/16 07:28 Pulse Rate 115 09/19/16 08:45 Respiratory Rate 20 09/19/16 08:45 Blood Pressure 119/71 09/19/16 07:28 O2 Saturation by Pulse Oximetry 96 09/19/16 08:45 Oxygen Delivery Method Nasal Cannula Oxygen Flow Rate 2 Vital Signs Last 12 Hours Temp Pulse Resp BP Pulse Ox 09/19/16 08:45 115 20 96 09/19/16 07:37 16 09/19/16 07:28 97.9 F 104 18 119/71 93 09/19/16 02:30 89 18 09/19/16 01:59 98.3 F 104 18 118/72 93 Intake and Output 09/17/16 09/18/16 09/19/16 23:59 23:59 23:59 Intake Total 2775 3175 300 Output Total 1925 2300 550 Balance 850 875 -250 General: Alert, Cooperative, Mild Distress (overall appears more awake, more alert, (slightly) better historian.) Lungs: Other (wheezes bilat. Decreased air movement bilat.) Cardiovascular: Other (mostly regular.) Abdomen: Normal Bowel Sounds, Non-Distended (obese), No Tenderness, No Rebounding Extremities: Edema (trace edema of lower extremities. Some tenderness at lateral epicondyle on L.) Neurological: Normal Speech Psych/Mental Status: Normal Affect Laboratory 09/18/16 05:00 09/19/16 05:35 09/19/16 09/18/16 09/18/16 05:35 21:46 17:08 Estimated GFR 98 H POC Capillary Glucose 233 H 316 H 09/18/16 11:35 Estimated GFR POC Capillary Glucose 247 H Current Medications: Current meds reviewed in EMR. Active Medications Acetaminophen/Hydrocodone Bitart ([place] 10/325) 1 tab PO QID PRN PRN Reason: Pain Last Admin: 09/19/16 00:18 Dose: 1 tab Albuterol Sulfate (Ventolin Inhalation Solution (Dose)) 2.5 mg NEB Q2H PRN PRN Reason: Wheezing Last Admin: 09/19/16 05:47 Dose: 2.5 mg Albuterol/Ipratropium (Duoneb) 3 ml NEB 08,12,16,20 [facility] Last Admin: 09/19/16 08:45 Dose: 3 ml Atenolol (Tenormin) 50 mg PO DAILY [facility] Last Admin: 09/18/16 09:13 Dose: 50 mg Benzocaine/Menthol (Cepacol) 1 each PO PRN PRN PRN Reason: Sore Throat Bisacodyl (Dulcolax) 10 mg [place] DAILY PRN PRN Reason: Constipation Bisacodyl (Dulcolax) 5 mg PO DAILY PRN PRN Reason: Constipation Digoxin (Lanoxin) 0.125 mg PO DAILY@1200 [facility] Last Admin: 09/18/16 11:36 Dose: 0.125 mg Docusate Sodium (Colace) 100 mg PO BID [facility] Last Admin: 09/19/16 07:04 Dose: Not Given Furosemide (Lasix) 20 mg PO BID [facility] Last Admin: 09/18/16 22:01 Dose: 20 mg Glimepiride (Amaryl) 4 mg PO DAILY [facility] Last Admin: 09/18/16 09:13 Dose: 4 mg Ceftriaxone Sodium/Dextrose 1 (g/ Premix (D5W) 50 ml) 50 mls @ 100 mls/hr IV Q24H [facility] Last Admin: 09/18/16 12:06 Dose: 100 mls/hr Sodium Chloride (Sodium Chloride 0.9%) 100 mls @ 25 mls/hr IV PRN PRN PRN Reason: Flush Last Admin: 09/18/16 22:03 Dose: 25 mls/hr Levofloxacin/Dextrose 750 mg/ (Premix (D5W) 150 ml Bag) 150 mls @ 100 mls/hr IV Q24H [facility] Last Admin: 09/18/16 10:31 Dose: 100 mls/hr Vancomycin HCl 2 g/ Sodium (Chloride) 540 mls @ 270 mls/hr IV Q12H [facility] Last Admin: 09/18/16 22:03 Dose: 270 mls/hr Insulin Aspart (Novolog (Dose)) 0 units SUB-Q WM/BEDTIME PRN; Protocol PRN Reason: Blood Sugar > Last Admin: 09/18/16 22:00 Dose: 2 units Insulin Human Isoph/Insulin Regular (Novolin/Humulin 70/30 Dose) 80 units SUB- Q BID [facility] Last Admin: 09/18/16 22:01 Dose: 80 units Lidocaine HCl (Lidocaine 1% (Pres Free)) 2 - 5 ml PF X1 PRN PRN Reason: Pain from PICC line placement Last Admin: 09/18/16 20:30 Dose: 2 ml Lorazepam (Ativan) 0.5 - 1 mg IV X1 PRN PRN Reason: Anxiety during PICC Placement Magnesium Hydroxide (Milk Of Magnesia) 30 ml PO DAILY PRN PRN Reason: Constipation Last Admin: 09/16/16 01:34 Dose: 30 ml Magnesium Oxide (Magnesium Oxide) 400 mg PO BID [facility] Last Admin: 09/18/16 22:01 Dose: 400 mg Miscellaneous (Roflumilast [Daliresp 500 Mcg Tablet]) 500 mcg PO DAILY [facility] Last Admin: 09/18/16 09:15 Dose: 500 mcg Nitroglycerin (Nitrostat) 0.4 mg SL Q5M X 3 DOSES PRN Pantoprazole Sodium (Protonix) 40 mg PO DAILY [facility] Last Admin: 09/18/16 09:13 Dose: 40 mg Petrolatum/Paraffin/Mineral Oil (Blistex) 1 each TP PRN PRN PRN Reason: Dry and/or chapped lips Potassium Chloride (K-Dur) 20 meq PO BID [facility] Last Admin: 09/18/16 22:01 Dose: 20 meq Prednisone (Prednisone) 60 mg PO QAM [facility] Last Admin: 09/18/16 09:13 Dose: 60 mg Pregabalin (Lyrica) 150 mg PO BID [facility] Last Admin: 09/18/16 22:02 Dose: 150 mg Fluticasone/Salmeterol (Advair 500/50 Diskus) 1 puff IH BID [facility] Last Admin: 09/18/16 22:02 Dose: 1 puff Sodium Chloride (Normal Saline 10ml Flush) 10 ml IV Q8HR [facility] Last Admin: 09/19/16 00:18 Dose: 10 ml Sodium Chloride (Normal Saline 10ml Flush) 10 - 50 ml IV PRN PRN Last Admin: 09/19/16 05:47 Dose: 40 ml Tiotropium [place] (Spiriva Handihaler) 1 cap IH DAILY [facility] Last Admin: 09/18/16 09:13 Dose: 1 inh - Problems: Assessment/Plan (1) Hemoptysis Status: Acute Assessment/Plan: Pneumonia vs neoplasm with over-anticoagulation. INR now corrected, but on discussion with radiologist, they would hesitate to do biopsy at this time. Discussed with pulmonology, they suggest tx with IV abx - Vanco, Levaquin, ceftriaxone. picc line done, anticipate tx x 2 wk and follow up with pulmonology for reimaging. Monitoring for further hemoptysis. (2) Pulmonary mass Status: Acute Assessment/Plan: Neoplasm vs pneumonia. Pulmonology rec's abx tx, follow up outpt. Appreciate radiologist care, but will probably not be able to do procedure here. Reviewed with pulmonary in [place] (pt had prev seen Dr Cota), anticipate outpt followup Consider repeat CT in 1-2 wks. (3) Supratherapeutic INR Status: Resolved Assessment/Plan: Resolved. Corrected with 10 mg Vit K. Remains <1.5. Pt expresses interest in other anticoagulants (non-warfarin), but with hemoptysis, would not start at this time. (4) Atrial fibrillation Qualifiers: Atrial fibrillation type: chronic Qualifier Code: (I48.2) Chronic atrial fibrillation Status: Chronic Assessment/Plan: Has been on anticoagulation, now reversed on Vit K. On atenolol, Rate controlled., 84-103 Ongoing - AFib on admit EKG. Staying off anticoag for now, due to hemoptysis; could consider other options once dx clear. (5) COPD (chronic obstructive pulmonary disease) Qualifiers: COPD type: emphysema Emphysema type: unspecified Qualifier Code: ( J43.9) Emphysema, unspecified Status: Chronic Assessment/Plan: Noted on CT. Appreciate pulmonary input - Plan to stop prednisone after burst today, but may need to continue if wheezing worsens. Continue nebs. (6) Diabetes type 2, controlled Qualifiers: Diabetes mellitus complication status: with unspecified complications Diabetes mellitus fdc insulin use: with harmonica maker use Qualifier Code: (E11.8) Type 2 diabetes mellitus with unspecified complications Status: Chronic Assessment/Plan: Not controlled currently, likely worsened considerably with steroids; will hope to stop today. VTE Prophylaxis: Holding for now, due to hemoptysis. Mechanical tx Disposition: Considering for 2 wk course of abx - SNF vs other, with outpt follow up.
[2016-09-19] MEDS: INSULIN HUMAN NPH 70/REG 30 100 UNITS/1 ML UNIT (D0SE) SUB-Q SCH ×2 (10:13→21:57)
[2016-09-19] MEDS: ATENOLOL 25 MG TABLET PO SCH (10:14)
[2016-09-19] MEDS: PANTOPRAZOLE 40 MG TABLET DR PO SCH (10:15)
[2016-09-19] MEDS: PREGABALIN 50 MG CAP PO SCH ×2 (10:15→21:39)
--- NOTE | 2016-09-19 10:15 | PDOC43 ---
- Subjective Chief Complaint: Hemoptysis, poss lung mass vs pneumonia (completed late on 09/19) Still with cough, hemoptysis, chest discomfort. Working with CM about placement for Abx. Eating well. - Objective Vital Signs Temperature 97.4 F 09/18/16 07:20 Pulse Rate 98 09/18/16 07:34 Respiratory Rate 24 09/18/16 08:00 Blood Pressure 138/81 09/18/16 07:20 O2 Saturation by Pulse Oximetry 93 09/18/16 07:34 Oxygen Delivery Method Nasal Cannula Oxygen Flow Rate 0.5 Vital Signs Last 12 Hours Temp Pulse Resp BP Pulse Ox 09/18/16 08:00 24 09/18/16 07:34 98 24 93 09/18/16 07:20 97.4 F 98 18 138/81 98 09/18/16 02:12 97.9 F 90 18 137/82 95 09/18/16 02:00 18 Intake and Output 09/16/16 09/17/16 09/18/16 23:59 23:59 23:59 Intake Total 3613 2775 1655 Output Total 2385 1925 1100 Balance 1228 850 555 General: Alert, Cooperative, Other (eating) Lungs: Other (wheezes bilat.) Cardiovascular: Other (distant, mostly regular) Abdomen: Soft, Normal Bowel Sounds, Non-Distended, No Tenderness Extremities: Edema (trace LE edema) Neurological: Normal Speech Psych/Mental Status: Normal Affect, Other (poor historian) Laboratory 09/18/16 05:00 09/18/16 05:00 09/18/16 09/18/16 09/17/16 07:15 05:00 23:10 RBC 4.43 L MCHC 32.0 L Estimated GFR 98 H POC Capillary Glucose 114 H 279 H Total Protein 5.7 L Albumin 3.3 L 09/17/16 09/17/16 20:48 17:07 RBC MCHC Estimated GFR POC Capillary Glucose 407 H 325 H Total Protein Albumin Current Medications: Current meds reviewed in EMR. Active Medications Acetaminophen/Hydrocodone Bitart ([place] 10/325) 1 tab PO QID PRN PRN Reason: Pain Last Admin: 09/18/16 06:15 Dose: 1 tab Albuterol Sulfate (Ventolin Inhalation Solution (Dose)) 2.5 mg NEB Q2H PRN PRN Reason: Wheezing Albuterol/Ipratropium (Duoneb) 3 ml NEB 08,12,16,20 [facility] Last Admin: 09/18/16 07:34 Dose: 3 ml Atenolol (Tenormin) 50 mg PO DAILY [facility] Last Admin: 09/18/16 09:13 Dose: 50 mg Benzocaine/Menthol (Cepacol) 1 each PO PRN PRN PRN Reason: Sore Throat Bisacodyl (Dulcolax) 10 mg [place] DAILY PRN PRN Reason: Constipation Bisacodyl (Dulcolax) 5 mg PO DAILY PRN PRN Reason: Constipation Digoxin (Lanoxin) 0.125 mg PO DAILY@1200 [facility] Last Admin: 09/17/16 12:04 Dose: 0.125 mg Docusate Sodium (Colace) 100 mg PO BID [facility] Last Admin: 09/18/16 09:13 Dose: 100 mg Furosemide (Lasix) 20 mg PO BID [facility] Last Admin: 09/18/16 09:13 Dose: 20 mg Glimepiride (Amaryl) 4 mg PO DAILY [facility] Last Admin: 09/18/16 09:13 Dose: 4 mg Ceftriaxone Sodium/Dextrose 1 (g/ Premix (D5W) 50 ml) 50 mls @ 100 mls/hr IV Q24H [facility] Last Admin: 09/17/16 12:41 Dose: 100 mls/hr Sodium Chloride (Sodium Chloride 0.9%) 100 mls @ 25 mls/hr IV PRN PRN PRN Reason: Flush Last Admin: 09/18/16 00:04 Dose: 25 mls/hr Levofloxacin/Dextrose 750 mg/ (Premix (D5W) 150 ml Bag) 150 mls @ 100 mls/hr IV Q24H [facility] Last Admin: 09/18/16 10:31 Dose: 100 mls/hr Vancomycin HCl 2 g/ Sodium (Chloride) 540 mls @ 270 mls/hr IV Q12H [facility] Last Admin: 09/18/16 00:04 Dose: 270 mls/hr Insulin Aspart (Novolog (Dose)) 0 units SUB-Q WM/BEDTIME PRN; Protocol PRN Reason: Blood Sugar > Last Admin: 09/17/16 23:15 Dose: 3 units Insulin Human Isoph/Insulin Regular (Novolin/Humulin 70/30 Dose) 80 units SUB- Q BID [facility] Last Admin: 09/18/16 09:14 Dose: 80 units Magnesium Hydroxide (Milk Of Magnesia) 30 ml PO DAILY PRN PRN Reason: Constipation Last Admin: 09/16/16 01:34 Dose: 30 ml Magnesium Oxide (Magnesium Oxide) 400 mg PO BID [facility] Last Admin: 09/18/16 09:13 Dose: 400 mg Miscellaneous (Roflumilast [Daliresp 500 Mcg Tablet]) 500 mcg PO DAILY [facility] Last Admin: 09/18/16 09:15 Dose: 500 mcg Nitroglycerin (Nitrostat) 0.4 mg SL Q5M X 3 DOSES PRN Pantoprazole Sodium (Protonix) 40 mg PO DAILY [facility] Last Admin: 09/18/16 09:13 Dose: 40 mg Petrolatum/Paraffin/Mineral Oil (Blistex) 1 each TP PRN PRN PRN Reason: Dry and/or chapped lips Potassium Chloride (K-Dur) 20 meq PO BID [facility] Last Admin: 09/18/16 09:13 Dose: 20 meq Prednisone (Prednisone) 60 mg PO QAM [facility] Last Admin: 09/18/16 09:13 Dose: 60 mg Pregabalin (Lyrica) 150 mg PO BID [facility] Last Admin: 09/18/16 09:12 Dose: 150 mg Fluticasone/Salmeterol (Advair 500/50 Diskus) 1 puff IH BID [facility] Last Admin: 09/18/16 09:13 Dose: 1 puff Sodium Chloride (Normal Saline 10ml Flush) 10 ml IV Q8HR [facility] Last Admin: 09/18/16 10:31 Dose: 10 ml Sodium Chloride (Normal Saline 10ml Flush) 10 - 50 ml IV PRN PRN Last Admin: 09/16/16 14:38 Dose: 10 ml Tiotropium [place] (Spiriva Handihaler) 1 cap IH DAILY [facility] Last Admin: 09/18/16 09:13 Dose: 1 inh - Problems: Assessment/Plan (1) Hemoptysis Status: Acute Assessment/Plan: Pneumonia vs neoplasm with over-anticoagulation. INR now corrected, but on discussion with radiologist, they would hesitate to do biopsy at this time. Discussed with pulmonology, they suggest tx with IV abx - Vanco, Levaquin, ceftriaxone. Use picc line, x 2 wk and follow up with pulmonology for reimaging. Monitor for further hemoptysis. (2) Pulmonary mass Status: Acute Assessment/Plan: Appreciate radiologist care, but will probably not be able to do procedure here. Reviewed with pulmonary in [place] (pt had prev seen Dr Cota), anticipate outpt followup (3) Supratherapeutic INR Status: Resolved Assessment/Plan: Corrected with 10 mg Vit K. Remains <1.5. Pt expresses interest in other anticoagulants (non-warfarin), but with hemoptysis, would not start at this time. (4) Atrial fibrillation Qualifiers: Atrial fibrillation type: chronic Qualifier Code: (I48.2) Chronic atrial fibrillation Status: Chronic Assessment/Plan: Has been on anticoagulation, now reversed on Vit K. On atenolol, Rate controlled., 84-103 Ongoing - AFib on admit EKG. Staying off anticoag for now, due to hemoptysis (5) COPD (chronic obstructive pulmonary disease) Qualifiers: COPD type: emphysema Emphysema type: unspecified Qualifier Code: ( J43.9) Emphysema, unspecified Status: Chronic Assessment/Plan: Noted on CT. Appreciate pulmonary input - (6) Diabetes type 2, controlled Qualifiers: Diabetes mellitus complication status: with unspecified complications Diabetes mellitus examination proctor insulin use: with fci use Qualifier Code: (E11.8) Type 2 diabetes mellitus with unspecified complications Status: Chronic Assessment/Plan: Not controlled currently, likely worsened considerably with steroids. BG improved today: Laboratory Tests 09/17/16 09/18/16 09/18/16 23:10 05:00 07:15 Glucose 153 H POC Capillary Glucose 279 H 114 H VTE Prophylaxis: Holding for now, due to hemoptysis. Mechanical tx Disposition: Considering for 2 wk course of abx - SNF vs other, with outpt follow up.
[2016-09-19] MEDS: PREDNISONE 20 MG TABLET PO SCH (10:16)
[2016-09-19] MEDS: FUROSEMIDE 20 MG TABLET PO SCH ×2 (10:17→21:39)
[2016-09-19] MEDS: Magnesium Oxide 400 MG TABLET PO SCH ×2 (10:17→21:39)
[2016-09-19] MEDS: GLIMEPIRIDE 4 MG TABLET PO SCH (10:18)
[2016-09-19] MEDS: POTASSIUM CHLORIDE 20 MEQ TAB.PRT.SR PO SCH ×2 (10:19→21:39)
[2016-09-19] MEDS: ROFLUMILAST 500 MCG PO SCH (10:29)
[2016-09-19] MEDS: TIOTROPIUM BROMIDE 18 MCG 5 CAP/INHALER IH SCH (10:29)
[2016-09-19] MEDS: FLUTICASONE/SALMETEROL 500/50 14 PUFFS/DISK IH SCH ×2 (10:30→21:57)
[2016-09-19] MEDS: VANCOMYCIN HCL 2 G in SODIUM CHLORIDE 0.9% 500 ML IV SCH ×2 (10:30→21:42)
[2016-09-19] MEDS: DIGOXIN 0.125 MG TABLET PO SCH (11:40)
[2016-09-19] MEDS: LEVOFLOXACIN 750 MG/D5W 150 ML 750 MG in Premix (D5W) 150 ml Bag 1 EACH IV SCH (11:41)
[2016-09-19] MEDS: CEFTRIAXONE 1 GRAM DUPLEX 1 G in Premix (D5W) 50 ml 1 EACH IV SCH (14:04)
[2016-09-19] MEDS: INSULIN ASPART (DOSE) 100 UNITS/1 ML SUB-Q PRN (21:58)
[2016-09-20] MEDS: HYDROCODONE BIT/ACETAMINOPHEN 10 MG/325 MG TAB PO PRN ×3 (04:19→12:56)
[2016-09-20 05:05] LABS: HEMATOCRIT 39.3 % (32.0-52.0); HEMOGLOBIN 12.5 gm/l (14.0-18.0); MEAN CELL VOLUME 89.5 fl (80.0-94.0); MEAN CORPUSCULAR HEMOGLOBIN 28.5 pg (27.0-31.0); MEAN CORPUSCULAR HGB CONC 31.8 g/dl (33.0-37.0); RED CELL DISTRIBUTION WIDTH 14.7 % (11.5-14.5)
[2016-09-20 05:34] LABS: ALB/GLOB RATIO 1.4 (>1.0); ALBUMIN 3.3 gm/dL (3.5-5.7); CALCIUM 9.7 mg/dL (8.6-10.3)
[2016-09-20] MEDS: ALBUTEROL/IPRATROPIUM 2.5/0.5 MG 3 ML/EACH DOSE NEB SCH ×3 (07:42→16:40)
[2016-09-20] MEDS ORDERED: INSULIN HUMAN NPH 70/REG 30 100 UNITS/1 ML UNIT (D0SE) SUB-Q SCH (09:00)
[2016-09-20] MEDS: PREGABALIN 50 MG CAP PO SCH (09:15)
[2016-09-20] MEDS: ROFLUMILAST 500 MCG PO SCH (09:15)
[2016-09-20] MEDS: ATENOLOL 25 MG TABLET PO SCH (09:16)
[2016-09-20] MEDS: FUROSEMIDE 20 MG TABLET PO SCH (09:17)
[2016-09-20] MEDS: Magnesium Oxide 400 MG TABLET PO SCH (09:17)
[2016-09-20] MEDS: POTASSIUM CHLORIDE 20 MEQ TAB.PRT.SR PO SCH (09:17)
[2016-09-20] MEDS: PANTOPRAZOLE 40 MG TABLET DR PO SCH (09:18)
[2016-09-20] MEDS: GLIMEPIRIDE 4 MG TABLET PO SCH (09:18)
[2016-09-20] MEDS: DOCUSATE SODIUM 100 MG CAPSULE PO SCH (09:18)
[2016-09-20] MEDS: TIOTROPIUM BROMIDE 18 MCG 5 CAP/INHALER IH SCH (09:20)
[2016-09-20] MEDS: FLUTICASONE/SALMETEROL 500/50 14 PUFFS/DISK IH SCH (09:43)
[2016-09-20 09:55] LABS: VANCOMYCIN TROUGH 15.5 ug/ml (5.0-10.0)
[2016-09-20] MEDS: VANCOMYCIN HCL 2 G in SODIUM CHLORIDE 0.9% 500 ML IV SCH (10:38)
[2016-09-20] MEDS ORDERED: PUMP TUBING ONE (10:40)
[2016-09-20] MEDS: LEVOFLOXACIN 750 MG/D5W 150 ML 750 MG in Premix (D5W) 150 ml Bag 1 EACH IV SCH (12:09)
[2016-09-20] MEDS: DIGOXIN 0.125 MG TABLET PO SCH (12:13)
[2016-09-20] MEDS: CEFTRIAXONE 1 GRAM DUPLEX 1 G in Premix (D5W) 50 ml 1 EACH IV SCH (12:50)
[2016-09-20] MEDS ORDERED: LEVOFLOXACIN 750 MG/D5W 150 ML 750 MG in Premix (D5W) 150 ml Bag 1 EACH IV SCH (13:00)
--- NOTE | 2016-09-20 13:14 | PDOC43 ---
- Subjective Chief Complaint: Hemoptysis, poss lung mass vs pneumonia Patient reports breathing still about the same. Wheezing, and notes some blood in sputum still. Some decreased appetite noted. - Objective Vital Signs Temperature 97.9 F 09/20/16 07:55 Pulse Rate 110 09/20/16 07:55 Respiratory Rate 24 09/20/16 12:22 Blood Pressure 144/80 09/20/16 07:55 O2 Saturation by Pulse Oximetry 95 09/20/16 07:55 Oxygen Delivery Method Nasal Cannula Oxygen Flow Rate 2 Vital Signs Last 12 Hours Temp Pulse Resp BP Pulse Ox 09/20/16 12:22 24 09/20/16 08:00 24 09/20/16 07:55 97.9 F 110 17 144/80 95 09/20/16 02:00 24 09/20/16 01:31 97.7 F 86 24 122/98 97 Intake and Output 09/18/16 09/19/16 09/20/16 23:59 23:59 23:59 Intake Total 3175 1984 1632 Output Total 2300 1900 1050 Balance 875 84 582 General: Alert, Cooperative, Mild Distress (coughing) Lungs: Other (bilat wheezing. Coughing noted.) Cardiovascular: Regular Rate and Rhythm Abdomen: Normal Bowel Sounds, Non-Distended, No Tenderness Extremities: Edema (trace) Neurological: Normal Speech Psych/Mental Status: Other (seems a little more alert overall, sl better historian.) Laboratory 09/20/16 04:40 09/20/16 09:05 09/20/16 09/20/16 09/20/16 11:13 10:18 09:05 RBC MCHC RDW Anion Gap Estimated GFR 114 H POC Capillary Glucose 118 H 108 H Total Protein Albumin Vancomycin Trough 15.5 H 09/20/16 09/20/16 09/19/16 08:09 04:40 21:36 RBC 4.39 L MCHC 31.8 L RDW 14.7 H Anion Gap 7 L Estimated GFR 114 H POC Capillary Glucose 66 L 225 H Total Protein 5.6 L Albumin 3.3 L Vancomycin Trough 09/19/16 15:51 RBC MCHC RDW Anion Gap Estimated GFR POC Capillary Glucose 149 H Total Protein Albumin Vancomycin Trough Current Medications: Current meds reviewed in EMR. Active Medications Acetaminophen/Hydrocodone Bitart ([place] 10/325) 1 tab PO Q4H PRN PRN Reason: Pain Last Admin: 09/20/16 12:56 Dose: 1 tab Albuterol Sulfate (Ventolin Inhalation Solution (Dose)) 2.5 mg NEB Q2H PRN PRN Reason: Wheezing Last Admin: 09/19/16 05:47 Dose: 2.5 mg Albuterol/Ipratropium (Duoneb) 3 ml NEB 08,12,16,20 [facility] Last Admin: 09/20/16 07:42 Dose: 3 ml Atenolol (Tenormin) 50 mg PO DAILY [facility] Last Admin: 09/20/16 09:16 Dose: 50 mg Benzocaine/Menthol (Cepacol) 1 each PO PRN PRN PRN Reason: Sore Throat Bisacodyl (Dulcolax) 10 mg [place] DAILY PRN PRN Reason: Constipation Bisacodyl (Dulcolax) 5 mg PO DAILY PRN PRN Reason: Constipation Digoxin (Lanoxin) 0.125 mg PO DAILY@1200 [facility] Last Admin: 09/20/16 12:13 Dose: 0.125 mg Docusate Sodium (Colace) 100 mg PO BID [facility] Last Admin: 09/20/16 09:18 Dose: Not Given Furosemide (Lasix) 20 mg PO BID [facility] Last Admin: 09/20/16 09:17 Dose: 20 mg Glimepiride (Amaryl) 4 mg PO DAILY [facility] Last Admin: 09/20/16 09:18 Dose: 4 mg Ceftriaxone Sodium/Dextrose 1 (g/ Premix (D5W) 50 ml) 50 mls @ 100 mls/hr IV Q24H [facility] Last Admin: 09/20/16 12:50 Dose: 100 mls/hr Sodium Chloride (Sodium Chloride 0.9%) 100 mls @ 25 mls/hr IV PRN PRN PRN Reason: Flush Last Admin: 09/18/16 22:03 Dose: 25 mls/hr Vancomycin HCl 2 g/ Sodium (Chloride) 540 mls @ 270 mls/hr IV Q12H [facility] Last Admin: 09/20/16 10:38 Dose: 270 mls/hr Levofloxacin/Dextrose 750 mg/ (Premix (D5W) 150 ml Bag) 150 mls @ 100 mls/hr IV Q24H [facility] Insulin Aspart (Novolog (Dose)) 0 units SUB-Q WM/BEDTIME PRN; Protocol PRN Reason: Blood Sugar > Last Admin: 09/19/16 21:58 Dose: 2 units Insulin Human Isoph/Insulin Regular (Novolin/Humulin 70/30 Dose) 60 units SUB- Q BID [facility] Last Admin: 09/20/16 10:22 Dose: 60 units Lidocaine HCl (Lidocaine 1% (Pres Free)) 2 - 5 ml PF X1 PRN PRN Reason: Pain from PICC line placement Last Admin: 09/18/16 20:30 Dose: 2 ml Lorazepam (Ativan) 0.5 - 1 mg IV X1 PRN PRN Reason: Anxiety during PICC Placement Magnesium Hydroxide (Milk Of Magnesia) 30 ml PO DAILY PRN PRN Reason: Constipation Last Admin: 09/16/16 01:34 Dose: 30 ml Magnesium Oxide (Magnesium Oxide) 400 mg PO BID [facility] Last Admin: 09/20/16 09:17 Dose: 400 mg Miscellaneous (Roflumilast [Daliresp 500 Mcg Tablet]) 500 mcg PO DAILY [facility] Last Admin: 09/20/16 09:15 Dose: 500 mcg Nitroglycerin (Nitrostat) 0.4 mg SL Q5M X 3 DOSES PRN Pantoprazole Sodium (Protonix) 40 mg PO DAILY [facility] Last Admin: 09/20/16 09:18 Dose: 40 mg Petrolatum/Paraffin/Mineral Oil (Blistex) 1 each TP PRN PRN PRN Reason: Dry and/or chapped lips Potassium Chloride (K-Dur) 20 meq PO BID [facility] Last Admin: 09/20/16 09:17 Dose: 20 meq Pregabalin (Lyrica) 150 mg PO BID [facility] Last Admin: 09/20/16 09:15 Dose: 150 mg Fluticasone/Salmeterol (Advair 500/50 Diskus) 1 puff IH BID [facility] Last Admin: 09/20/16 09:43 Dose: 1 puff Sodium Chloride (Normal Saline 10ml Flush) 10 ml IV Q8HR [facility] Last Admin: 09/20/16 10:39 Dose: 10 ml Sodium Chloride (Normal Saline 10ml Flush) 10 - 50 ml IV PRN PRN Last Admin: 09/19/16 21:42 Dose: 10 ml Tiotropium [place] (Spiriva Handihaler) 1 cap IH DAILY [facility] Last Admin: 09/20/16 09:20 Dose: 1 inh - Problems: Assessment/Plan (1) Hemoptysis Status: Acute Assessment/Plan: Pneumonia vs neoplasm with over-anticoagulation. Still with some reasonably fresh appearing blood in sputum. INR now corrected (now 5 days), but on discussion with radiologist, they would hesitate to do biopsy at this time. Discussed with pulmonology, they suggest tx with IV abx - Vanco, Levaquin, ceftriaxone. Use picc line, x 2 wk and follow up with pulmonology for reimaging. With ongoing blood, will check CT again, and compare to previous (2) Pulmonary mass Status: Acute Assessment/Plan: Appreciate radiologist care, but will probably not do procedure here. Reviewed with pulmonary in [place] (pt had prev seen Dr Cota), anticipate outpt followup (3) Atrial fibrillation Qualifiers: Atrial fibrillation type: chronic Qualifier Code: (I48.2) Chronic atrial fibrillation Status: Chronic Assessment/Plan: Has been on anticoagulation, now reversed on Vit K. On atenolol, Rate controlled., 84-103 Ongoing - AFib on admit EKG. Staying off anticoag for now, due to hemoptysis (4) COPD (chronic obstructive pulmonary disease) Qualifiers: COPD type: emphysema Emphysema type: unspecified Qualifier Code: ( J43.9) Emphysema, unspecified Status: Chronic Assessment/Plan: Noted on CT. Appreciate pulmonary input Still on supplemental O2. Stopped steroids, generally stable. (5) Diabetes type 2, controlled Qualifiers: Diabetes mellitus complication status: with unspecified complications Diabetes mellitus half-way insulin use: with intermediate designer use Qualifier Code: (E11.8) Type 2 diabetes mellitus with unspecified complications Status: Chronic Assessment/Plan: Much better after stopping steroids. VTE Prophylaxis: Holding for now, due to hemoptysis. Mechanical tx Disposition: Considering for 2 wk course of abx - SNF vs other, with outpt follow up.
[2016-09-20 16:43] VITALS: BP 145/88
[2016-09-20] MEDS ORDERED: MORPHINE SULFATE 10 MG/ML SYRINGE IV ONE (16:53)
--- NOTE | 2016-09-20 16:55 | CT ---
CHEST W/O CON History: Continued hemoptysis. Comparison: 09/15/2016. Procedure: 1 mm axial images were obtained through the chest without the use of oral or intravenous contrast. Stacked reconstructed 3 mm images were then photographed in the axial, coronal and sagittal planes. Findings: Images demonstrate a normal appearance of the visualized thyroid gland. There is an indwelling PICC catheter with its tip projecting near the level of the atrial caval junction. A 1.5 cm precarinal mediastinal lymph node is identified similar to its appearance on prior exam. An additional smaller 1.0 cm lymph node is seen in a more cephalad location which may be slightly increased in size. The heart size is stable. The aorta appears to be of normal caliber. No significant pericardial abnormalities are visualized. The esophagus appears to be appropriate. Lung parenchymal windows demonstrate a normal appearance of the central airways. There is evidence of a small new right pleural effusion with associated right basilar atelectasis. The substantial airspace consolidation observed within the right middle lobe on prior examination has significantly improved. The remaining area of relatively dense consolidation is seen along the anterior margin of the right middle lobe at the location of the denser area of consolidation seen on prior exam. There are significant pulmonary emphysematous changes which predominate within the lung apices. The 1.4 cm noncalcified nodule is again identified within the right lower lobe. A minimal left effusion is evident. Scans through the upper abdomen appear to be grossly unremarkable. No discrete osseous abnormalities are observed. Impression: 1. A residual focus of dense airspace consolidation along the anterior aspect of the right middle lobe at the site of the dense is component seen on prior examination. There is been however significant interval improvement in the amount of consolidation since prior examination. Continued follow-up to resolution however is recommended. 2. Very small bilateral pleural effusions, right greater than left with associated bibasilar atelectasis. 3. A stable appearance of the 1.4 cm right lower lobe pulmonary nodule. 4. Prominent bilateral pulmonary emphysematous changes, predominating within the lung apices. 5. Mild mediastinal adenopathy, slightly increased in size when compared to the prior exam.
[2016-09-20] MEDS ORDERED: MORPHINE SULFATE 2 MG/ML SYRINGE IV ONE (17:00)
[2016-09-20 17:28] LABS: ARTERIAL BLOOD GAS BASE EXCESS -1.1 mmol/L (-2.0-2.0); ARTERIAL BLOOD GAS HCO3 23.7 mmol/L (22.0-28.0); ARTERIAL BLOOD GAS PCO2 39.9 mmHg (35.0-45.0); ARTERIAL BLOOD GAS PO2 71.6 mmHg (80.0-90.0); ARTERIAL BLOOD GAS pH 7.392 (7.350-7.450)
[2016-09-20] MEDS ORDERED: D5 1/2NS with 20 mEq KCL 1,000 ML IV SCH (18:10)
--- NOTE | 2016-09-20 20:13 | TS ---
BRAD JAMISON [id number] TRANSFERRING DIAGNOSES: 1. Continuing hemoptysis. 2. Over anticoagulation, now corrected. 3. Lung mass suggested on CT. 4. Emphysema. 5. Hyperglycemia exacerbated by steroids. 6. Atrial fibrillation previously on anticoagulation. 7. Coronary artery disease status post right coronary drug eluting stent placed 2010. 8. Morbid obesity with a BMI of 43. 9. Obstructive sleep apnea uses CPAP at home. 10. History of nicotine dependence, quit smoking 3 years after 50 years of smoking 2 to 3 packs per day. REASON FOR ADMISSION: Patient is a 61-year-old patient of Dr. Bryson'velma who reports having a couple of days of thick sputum and cough, but on the morning of admission, he started coughing up blood as well. He is chronically dyspneic, and did not notice a significant change in dyspnea, but has had some left sided discomfort more recently. In the emergency room, he was noted to have a supratherapeutic INR greater than 10, along with a right sided infiltrate in both right lower lobe and right middle lobe nodules, or masses seen. He chronically takes oxygen 2 to 4 L per minute. In the emergency department, he was given vitamin K, ceftriaxone, and doxycycline, and referred to the Hospitalist service. His admission labs showed a white count of 7.6, hemiglobin 14.4, and platelets 227. INR greater than 10. Blood gas lactate 1.7. Chemistry profile: Sodium 138, potassium 3.2, chloride 98, CO2 at 30, BUN 11, creatinine 0.9, glucose 259, magnesium 1.5, calcium 8.6, troponin less than 0.01. Influenza testing was negative. He was monitored and initially on doxycycline, Rocephin, and steroids, but only had minimal improvement in respiratory status and continued having hemoptysis. He was initially intended to undergo needle biopsy, but on further review, it was felt that this was at high risk for worsening pulmonary status, so a discussion was carried out with [facility] and treatment with antibiotics, and follow up appointment was anticipated. He was switched to vancomycin, ceftriaxone, and levofloxacin. He had minimal improvement in respiratory status. His white blood cell count generally was not simply elevated. His hemoglobin trended downwards from 14.4 to 12.5. Platelets remained normal. His INR was 1.17 by 09/16/2016, and on 09/17/2016 was 1.08. His chemistry profile showed a mild hypokalemia, but with a sodium 140, potassium 3.3, chloride 105, BUN 12, creatinine 0.7, normal liver function tests. A BNP was performed which was 96. He underwent a follow up chest x-ray due to ongoing wheezing, which showed the peripherally inserted central catheter line that was placed and the patchy airspace consolidation on the right perihilar region. With ongoing hemoptysis despite being corrected, despite having his anticoagulation corrected. He underwent follow up CT on 09/20/2016. It showed a residual focus of dense airspace consolidation over the anterior aspect of the right middle lobe at the sight of the dense component seen on the prior exam. Significant interval improvement in the amount of consolidation since prior exam, but continued follow up until resolution is recommended. Very small bilateral pleural effusions right greater than left, stable appearance at 1.4 cm right lower lobe pulmonary nodule was seen, prominent bilateral pulmonary emphysematous changes predominating with the lung apices mild mediastinal adenopathy, slight increase in size compared to the prior exam. The patient's steroids were stopped on 09/18/2016 due to lack of improvement, respiratory conrad, and a continued hyperglycemia. His hyperglycemia was treated with 70/30 insulin as well as sliding scale correction. After the CT was done 09/20/2016, he developed an episode of dyspnea and produced further ketchup colored sputum, and on reviewing the CT it was felt that the original plan for outpatient follow up was less likely to be successful. Call was made to Dr. Cam Echeverria and he accepted this patient in transfer, and he and Dr. Lobo with the [facility] have agreed to accept this patient. His medicines at the time of transfer are: 1. [place] 10/325 one by mouth every 4 hours as needed. 2. Albuterol 2.5 nebulizer every 2 hours as needed. 3. Duoneb 3 mL four times a day scheduled. 4. Atenolol 50 mg by mouth daily. 5. Cepacol 1 by mouth daily. 6. Dulcolax 10 mg by mouth daily as needed, and 5 mg by mouth daily as needed. 7. Ceftriaxone 1 g every 24 hours. 8. Digoxin 0.125 mg by mouth daily. 9. Docusate 100 mg by mouth twice a day. 10. Advair 500/50 one puff inhaled twice a day. 11. Lasix 20 mg by mouth twice a day. 12. Glimepiride 4 mg by mouth daily. 13. Novolog sliding scale with meals at bedtime 70/30 at 60 units subcutaneously twice a day. 14. Levofloxacin 750 mg IV every 24 hours. 15. Ativan 0.5 to 1 mg IV as needed. 16. Milk of magnesia 30 mL by mouth daily as needed. 17. Magnesium oxide 400 mg by mouth twice a day. 18. Nitroglycerine 0.4 mg sublingually as needed. 19. Pantoprazole 40 mg by mouth daily. 20. Blistex topically as needed. 21. Potassium chloride 20 mEq by mouth twice a day scheduled. 22. D5 one-half normal saline 20 of K at 75 mL an hour. 23. Lyrica 150 mg by mouth twice a day. 24. Tiotropium 1 capsule inhaled daily. 25. Vancomycin 2 g every 12 hours. DISCHARGE EXAMINATION: VITAL SIGNS: At the most recent check when he was coughing and having dyspnea his heart rate went up to 137, it had previously been 98. His blood pressure is 145/88, and 99% saturation on 8 L. He had a blood gas performed this afternoon which showed a pH of 7.392, pO2 of 71.6, pCO2 of 39.9, bicarbonate 23.7, saturation 94.3%, base excess -1.1. His was notified of transfer and much appreciation of Dr. Echeverria, and Dr. Lobo for accepting this patient in transfer. STEPHANIE/melissa
== END 2016-09-20 19:35 | disposition short-term general hospital (02) | DRG 204 ==
LOC: ED 09:33 → MS 13:43 → UNDODISIN 09-16 13:24
PROVIDERS: ADMIT Family Medicine; ATTEND Family Medicine
PROC: 02HV33Z Insertion of Infusion Device into Superior Vena Cava, Percutaneous Approach (ICD-10-PCS; principal; 2016-09-15)
DX: R04.2 Hemoptysis (principal); J90 Pleural effusion, not elsewhere classified; Z68.41 Body mass index [BMI] 40.0-44.9, adult; J43.9 Emphysema, unspecified; I25.10 Atherosclerotic heart disease of native coronary artery without angina pectoris; Z98.61 Coronary angioplasty status; E78.5 Hyperlipidemia, unspecified; E66.01 Morbid (severe) obesity due to excess calories; E11.40 Type 2 diabetes mellitus with diabetic neuropathy, unspecified; M72.2 Plantar fascial fibromatosis; M54.5 Low back pain; K21.9 Gastro-esophageal reflux disease without esophagitis; I10 Essential (primary) hypertension; I48.2 Chronic atrial fibrillation; G47.33 Obstructive sleep apnea (adult) (pediatric); F32.9 Major depressive disorder, single episode, unspecified; Z87.891 Personal history of nicotine dependence; R91.8 Other nonspecific abnormal finding of lung field